=== PATIENT | female | born 1985 | race Caucasian/White ===

== ENCOUNTER 2019-01-29 09:24 | Inpatient (IN) | payer OTHER ==
[2019-01-29] MEDS ORDERED: ACETAMINOPHEN 325 MG TAB PO (10:00)
[2019-01-29] MEDS ORDERED: NACL 0.9% 3 ML SYG IV (10:00)
[2019-01-29] MEDS ORDERED: ONDANSETRON 4 MG INJ IV (10:00)
[2019-01-29 10:51] LABS: ADD MAN DIFF? NO
[2019-01-29 10:55] LABS: PLATELET COUNT 239 10^3/UL (140-415); WHITE BLOOD COUNT 7.6 10^3/ul (4.8-10.8)
[2019-01-29 10:55] LABS: BASOPHILS % 0.1 % (0.0-2.0); EOSINOPHILS # 0.1 10^3/ul (0.0-0.5); EOSINOPHILS % 1.8 % (0.0-7.0); HEMATOCRIT 36.3 % (37.0-47.0); HEMOGLOBIN 11.8 g/dl (12.0-16.0); LYMPHOCYTES # 2.1 10^3/ul (0.8-2.9); LYMPHOCYTES % 28.1 % (15.0-51.0); MEAN CORPUSCULAR HEMOGLOBIN 29.6 pg (29.0-33.0); MEAN CORPUSCULAR HGB CONC 32.5 g/dl (32.0-37.0); MEAN CORPUSCULAR VOLUME 91.2 fl (82.0-101.0); MEAN PLATELET VOLUME 9.4 fl (7.4-10.4); MONOCYTE # 0.7 10^3/ul (0.3-0.9); MONOCYTES % 9.4 % (0.0-11.0); NEUTROPHIL # 4.6 10^3/ul (1.6-7.5); NEUTROPHILS % 60.3 % (39.0-77.0); PLATELET COUNT 248 10^3/UL (140-415); RED BLOOD COUNT 3.98 10^6/ul (4.20-5.40); RED CELL DISTRIBUTION WIDTH 12.5 % (11.5-14.5)
[2019-01-29 11:12] LABS: ALANINE AMINOTRANSFERASE 301 IU/L (13-69); ALBUMIN/GLOBULIN RATIO 1.25; ALKALINE PHOSPHATASE 89 IU/L (42-121); ANION GAP 5 (5-13); ASPARTATE AMINO TRANSFERASE 410 IU/L (15-46); BILIRUBIN,INDIRECT 0.6 mg/dl (0-1.1); BILIRUBIN,TOTAL 0.6 mg/dl (0.2-1.3); BLOOD UREA NITROGEN 8 mg/dl (7-20); CALCIUM 9.1 mg/dl (8.4-10.2); CARBON DIOXIDE 29 mmol/L (21-31); CHLORIDE 103 mmol/L (97-110); CREATININE 0.62 mg/dl (0.44-1.00); Estimated GFR > 60 mL/min (>60); GLUCOSE 99 mg/dl (70-220); POTASSIUM 4.1 mmol/L (3.5-5.1); SODIUM 137 mmol/L (135-144); TOTAL PROTEIN 7.2 g/dl (6.1-8.1)
[2019-01-29 11:15] LABS: INR 0.95; PROTIME 12.8 Sec (11.9-14.9)
[2019-01-29 11:16] LABS: PARTIAL THROMBOPLASTIN TIME 27.5 Sec (23.0-35.0)
[2019-01-29 11:50] LABS: ADD UMIC YES; THROMBIN TIME 15.1 SEC (13.8-19.1); UR ASCORBIC ACID NEGATIVE (NEGATIVE); UR BILIRUBIN (Dip) NEGATIVE (NEGATIVE); UR BLOOD (Dip) 1+ mg/dL (NEGATIVE); UR CLARITY CLEAR (CLEAR); UR COLOR YELLOW (YELLOW); UR GLUCOSE (Dip) NEGATIVE (NEGATIVE); UR KETONES (Dip) NEGATIVE (NEGATIVE); UR LEUKOCYTE ESTERASE (Dip) NEGATIVE Leu/ul (NEGATIVE); UR MUCUS FEW /HPF (NONE SEEN); UR NITRITE (Dip) NEGATIVE (NEGATIVE); UR RBC 2 /HPF (0-5); UR SPECIFIC GRAVITY (Dip) 1.017 (1.003-1.030); UR TOTAL PROTEIN (Dip) NEGATIVE (NEGATIVE); UR UROBILINOGEN (Dip) NEGATIVE (NEGATIVE); UR WBC 0 /HPF (0-5)
[2019-01-29] MEDS: PIPER-TAZO 3.375 GM IV (PMX) 100 ML IVPB ×2 (13:21→17:27)
[2019-01-29] MEDS: PANTOPRAZOLE 40 MG INJ IV (13:21)
[2019-01-29] MEDS: SOD CHLORIDE 0.9% 1,000 ML IV ×2 (13:23→20:00)
[2019-01-29] MEDS: morphine 2 MG INJ IV (17:34)
[2019-01-30] MEDS: SOD CHLORIDE 0.9% 1,000 ML IV ×2 (00:09→11:42)
[2019-01-30] MEDS: PIPER-TAZO 3.375 GM IV (PMX) 100 ML IVPB ×4 (00:09→18:59)
[2019-01-30] MEDS: PANTOPRAZOLE 40 MG INJ IV ×2 (05:30→20:34)
[2019-01-30 07:06] LABS: ADD MAN DIFF? NO
[2019-01-30 07:14] LABS: BASOPHILS % 0.5 % (0.0-2.0); EOSINOPHILS # 0.2 10^3/ul (0.0-0.5); EOSINOPHILS % 2.8 % (0.0-7.0); HEMATOCRIT 35.4 % (37.0-47.0); HEMOGLOBIN 11.1 g/dl (12.0-16.0); LYMPHOCYTES # 2.2 10^3/ul (0.8-2.9); LYMPHOCYTES % 29.9 % (15.0-51.0); MEAN CORPUSCULAR HEMOGLOBIN 28.8 pg (29.0-33.0); MEAN CORPUSCULAR HGB CONC 31.4 g/dl (32.0-37.0); MEAN CORPUSCULAR VOLUME 91.9 fl (82.0-101.0); MEAN PLATELET VOLUME 9.7 fl (7.4-10.4); MONOCYTE # 0.6 10^3/ul (0.3-0.9); NEUTROPHIL # 4.3 10^3/ul (1.6-7.5); NEUTROPHILS % 58.4 % (39.0-77.0); PLATELET COUNT 239 10^3/UL (140-415); RED BLOOD COUNT 3.85 10^6/ul (4.20-5.40); RED CELL DISTRIBUTION WIDTH 12.7 % (11.5-14.5)
[2019-01-30 07:14] LABS: WHITE BLOOD COUNT 7.4 10^3/ul (4.8-10.8)
[2019-01-30 07:33] LABS: ALANINE AMINOTRANSFERASE 220 IU/L (13-69); ALBUMIN 3.7 g/dl (3.3-4.9); ALBUMIN/GLOBULIN RATIO 1.23; ALKALINE PHOSPHATASE 82 IU/L (42-121); ANION GAP 6 (5-13); ASPARTATE AMINO TRANSFERASE 114 IU/L (15-46); BILIRUBIN,INDIRECT 1.1 mg/dl (0-1.1); BILIRUBIN,TOTAL 1.1 mg/dl (0.2-1.3); BLOOD UREA NITROGEN 7 mg/dl (7-20); CALCIUM 8.7 mg/dl (8.4-10.2); CARBON DIOXIDE 27 mmol/L (21-31); CHLORIDE 105 mmol/L (97-110); CHOL/HDL RATIO 4.3 RATIO; CHOLESTEROL 127 mg/dl (100-200); CREATININE 0.83 mg/dl (0.44-1.00); Estimated GFR > 60 mL/min (>60); GLUCOSE 83 mg/dl (70-220); HDL CHOLESTEROL 29 mg/dl (34-82); LDL CHOLESTEROL,CALCULATED 68 mg/dl; POTASSIUM 4.2 mmol/L (3.5-5.1); SODIUM 138 mmol/L (135-144); TOTAL PROTEIN 6.7 g/dl (6.1-8.1); TRIGLYCERIDES 148 mg/dl (0-149)
[2019-01-30 07:42] LABS: HEMOGLOBIN A1C 4.9 % (0-5.9)
[2019-01-30] MEDS ORDERED: PROPOFOL 20 ML (17:04)
[2019-01-30] MEDS ORDERED: PANTOPRAZOLE 40 MG INJ (19:44)
[2019-01-31] MEDS: PIPER-TAZO 3.375 GM IV (PMX) 100 ML IVPB ×2 (00:21→06:05)
[2019-01-31] MEDS: SOD CHLORIDE 0.9% 1,000 ML IV (01:05)
[2019-01-31 05:54] LABS: ADD MAN DIFF? NO
[2019-01-31 05:59] LABS: BASOPHILS % 0.3 % (0.0-2.0); EOSINOPHILS # 0.2 10^3/ul (0.0-0.5); EOSINOPHILS % 2.1 % (0.0-7.0); HEMATOCRIT 33.6 % (37.0-47.0); LYMPHOCYTES # 2.6 10^3/ul (0.8-2.9); MEAN CORPUSCULAR HEMOGLOBIN 30.1 pg (29.0-33.0); MEAN CORPUSCULAR HGB CONC 32.7 g/dl (32.0-37.0); MEAN CORPUSCULAR VOLUME 92.1 fl (82.0-101.0); MEAN PLATELET VOLUME 9.2 fl (7.4-10.4); MONOCYTE # 0.9 10^3/ul (0.3-0.9); MONOCYTES % 8.2 % (0.0-11.0); NEUTROPHIL # 7.5 10^3/ul (1.6-7.5); PLATELET COUNT 228 10^3/UL (140-415); RED BLOOD COUNT 3.65 10^6/ul (4.20-5.40); RED CELL DISTRIBUTION WIDTH 12.5 % (11.5-14.5)
[2019-01-31 05:59] LABS: WHITE BLOOD COUNT 11.4 10^3/ul (4.8-10.8)
[2019-01-31 06:26] LABS: PHOSPHORUS 4.1 mg/dl (2.5-4.9)
[2019-01-31 06:29] LABS: ALANINE AMINOTRANSFERASE 162 IU/L (13-69); ALBUMIN 3.3 g/dl (3.3-4.9); ALBUMIN/GLOBULIN RATIO 1.13; ALKALINE PHOSPHATASE 82 IU/L (42-121); ANION GAP 5 (5-13); ASPARTATE AMINO TRANSFERASE 50 IU/L (15-46); BILIRUBIN,INDIRECT 0.7 mg/dl (0-1.1); BILIRUBIN,TOTAL 0.7 mg/dl (0.2-1.3); BLOOD UREA NITROGEN 11 mg/dl (7-20); CARBON DIOXIDE 26 mmol/L (21-31); CHLORIDE 107 mmol/L (97-110); Estimated GFR > 60 mL/min (>60); GLUCOSE 97 mg/dl (70-220); POTASSIUM 3.9 mmol/L (3.5-5.1); SODIUM 138 mmol/L (135-144); TOTAL PROTEIN 6.2 g/dl (6.1-8.1)
[2019-01-31 06:53] LABS: THYROID STIMULATING HORMONE 0.968 MIU/L (0.465-4.680)
[2019-01-31] MEDS: PANTOPRAZOLE 40 MG INJ IV (08:48)
[2019-01-31] MEDS: SUCRALFATE 1 GM TAB PO ×3 (14:59→20:41)
[2019-01-31] MEDS: PANTOPRAZOLE (EC) 40 MG TAB PO (18:30)
[2019-02-01] MEDS: PANTOPRAZOLE (EC) 40 MG TAB PO (06:08)
[2019-02-01] MEDS: SUCRALFATE 1 GM TAB PO ×2 (08:48→13:25)
[2019-02-01 10:15] LABS: ADD MAN DIFF? NO
[2019-02-01 10:22] LABS: WHITE BLOOD COUNT 9.3 10^3/ul (4.8-10.8)
[2019-02-01 10:22] LABS: BASOPHILS % 0.3 % (0.0-2.0); EOSINOPHILS # 0.2 10^3/ul (0.0-0.5); EOSINOPHILS % 1.9 % (0.0-7.0); HEMATOCRIT 38.3 % (37.0-47.0); HEMOGLOBIN 12.7 g/dl (12.0-16.0); LYMPHOCYTES # 2.5 10^3/ul (0.8-2.9); LYMPHOCYTES % 26.9 % (15.0-51.0); MEAN CORPUSCULAR HEMOGLOBIN 30.2 pg (29.0-33.0); MEAN CORPUSCULAR HGB CONC 33.2 g/dl (32.0-37.0); MEAN CORPUSCULAR VOLUME 91.2 fl (82.0-101.0); MEAN PLATELET VOLUME 9.6 fl (7.4-10.4); MONOCYTE # 0.6 10^3/ul (0.3-0.9); MONOCYTES % 6.4 % (0.0-11.0); NEUTROPHILS % 64.2 % (39.0-77.0); PLATELET COUNT 266 10^3/UL (140-415); RED CELL DISTRIBUTION WIDTH 12.4 % (11.5-14.5)
[2019-02-01 10:51] LABS: ALANINE AMINOTRANSFERASE 127 IU/L (13-69); ALBUMIN 4.2 g/dl (3.3-4.9); ALBUMIN/GLOBULIN RATIO 1.35; ALKALINE PHOSPHATASE 83 IU/L (42-121); ANION GAP 8 (5-13); ASPARTATE AMINO TRANSFERASE 33 IU/L (15-46); BILIRUBIN,INDIRECT 0.6 mg/dl (0-1.1); BILIRUBIN,TOTAL 0.6 mg/dl (0.2-1.3); BLOOD UREA NITROGEN 10 mg/dl (7-20); CALCIUM 9.6 mg/dl (8.4-10.2); CARBON DIOXIDE 26 mmol/L (21-31); CHLORIDE 104 mmol/L (97-110); CREATININE 0.73 mg/dl (0.44-1.00); Estimated GFR > 60 mL/min (>60); GLUCOSE 109 mg/dl (70-220); POTASSIUM 4.4 mmol/L (3.5-5.1); SODIUM 138 mmol/L (135-144); TOTAL PROTEIN 7.3 g/dl (6.1-8.1)
== END 2019-02-01 14:30 | disposition home or self-care (01) | DRG 392 ==
LOC: PP2 09:24
PROVIDERS: Internal Medicine
PROC: 0DB68ZX Excision of Stomach, Via Natural or Artificial Opening Endoscopic, Diagnostic (ICD-10-PCS; principal; 2019-01-30 15:30)
PROC: 0DB98ZX Excision of Duodenum, Via Natural or Artificial Opening Endoscopic, Diagnostic (ICD-10-PCS; 2019-01-30 15:30)
DX: K31.9 Disease of stomach and duodenum, unspecified (principal); K80.20 Calculus of gallbladder without cholecystitis without obstruction; R12 Heartburn; R16.0 Hepatomegaly, not elsewhere classified; R11.2 Nausea with vomiting, unspecified; R19.7 Diarrhea, unspecified; K27.9 Peptic ulcer, site unspecified, unspecified as acute or chronic, without hemorrhage or perforation; K29.70 Gastritis, unspecified, without bleeding; R00.1 Bradycardia, unspecified
CPT/HCPCS: 74181; 78226; 80053; 80061; 81001; 83036; 83735; 84100; 84443; 84703; 85025; 85049; 85610; 85670; 85730; 87081; 88305; 88312

== ENCOUNTER 2019-02-27 05:24 | Day surgery (SDC) | payer OTHER ==
[2019-02-27] MEDS ORDERED: ROCURONIUM 50 MG INJ (07:22)
[2019-02-27] MEDS ORDERED: MIDAZOLAM 1 MG/ML 2 ML INJ (07:22)
[2019-02-27] MEDS ORDERED: GLYCOPYRROLATE 0.4 MG INJ (07:22)
[2019-02-27] MEDS ORDERED: ONDANSETRON 4 MG INJ (07:22)
[2019-02-27] MEDS ORDERED: FENTAnyl 50 MCG/ML VIAL (07:22)
[2019-02-27] MEDS ORDERED: NEOSTIGMINE 3 MG/3 ML SYRINGE (07:22)
[2019-02-27] MEDS ORDERED: CEFAZOLIN 1 GM INJ (07:22)
[2019-02-27] MEDS ORDERED: DEXAMETHASONE 4 MG/ML 5 ML INJ (07:22)
[2019-02-27] MEDS ORDERED: DESFLURANE 15 MIN (07:22)
[2019-02-27] MEDS ORDERED: PROPOFOL 20 ML (07:22)
[2019-02-27] MEDS ORDERED: MIDAZOLAM 1 MG/ML 2 ML INJ IV (07:30)
[2019-02-27] MEDS ORDERED: FENTAnyl 50 MCG/ML VIAL IV ×3 (07:30)
[2019-02-27] MEDS ORDERED: EPHEDrine 25 MG/5 ML SYG IV (07:30)
[2019-02-27] MEDS ORDERED: hydrALAzine 20 MG INJ IV (07:30)
[2019-02-27] MEDS ORDERED: TRIMETHOBENZAMIDE 100 MG/ML VIAL IM (07:30)
[2019-02-27] MEDS ORDERED: IPRATROPIUM (NEB) 0.5 MG/2.5 ML AMP HHN (07:30)
[2019-02-27] MEDS ORDERED: ALBUTEROL 0.083% (NEB) 2.5 MG/3 ML AMP HHN (07:30)
[2019-02-27] MEDS ORDERED: OXYCODONE/ACETAMINOPHEN (5/325) TAB PO ×4 (07:30→09:00)
[2019-02-27] MEDS ORDERED: DIPHENHYDRAMINE 50 MG INJ IV (07:30)
[2019-02-27] MEDS ORDERED: LABETALOL HCL 20MG INJ IV (07:30)
[2019-02-27] MEDS ORDERED: HYDROmorphONE 1 MG/5 ML IV SYRINGE IV ×3 (07:30)
[2019-02-27] MEDS: BUPIVACAINE 0.25%/EPI (SDV) 10 ML INJ (07:54)
[2019-02-27] MEDS ORDERED: ROPIVACAINE 0.5 % 30 ML VIAL ×2 (08:23)
[2019-02-27] MEDS ORDERED: KETOROLAC 30 MG INJ (08:23)
[2019-02-27] MEDS ORDERED: morphine 2 MG INJ IV (09:00)
[2019-02-27] MEDS ORDERED: ONDANSETRON 4 MG INJ IV (09:00)
[2019-02-27] MEDS: ONDANSETRON 4 MG INJ IV (09:17)
[2019-02-27] MEDS: MEPERIDINE 25 MG INJ IV (09:18)
== END 2019-02-27 10:30 | disposition home or self-care (01) ==
LOC: SDS 05:24
DX: K80.10 Calculus of gallbladder with chronic cholecystitis without obstruction (principal); K21.9 Gastro-esophageal reflux disease without esophagitis; E66.9 Obesity, unspecified
CPT/HCPCS: 47562; 84703; 88304